=== PATIENT | female | born 1960 | race African-American/Black ===

== ENCOUNTER 2018-03-19 08:55 | Emergency (ER) | payer BC ==
[2018-03-19] MEDS: CEFTRIAXONE 1 GM/50 ML (PMX) 50 ML IVPB (10:37)
[2018-03-19] MEDS: ONDANSETRON 4 MG INJ IV (10:37)
[2018-03-19] MEDS: HYDROmorphONE 1 MG/ML SYG IV (10:37)
== END 2018-03-19 12:23 | disposition home or self-care (01) ==
LOC: E/R 12:23
DX: L73.2 Hidradenitis suppurativa (principal); L02.411 Cutaneous abscess of right axilla; E11.9 Type 2 diabetes mellitus without complications; I10 Essential (primary) hypertension; Z79.4 Long term (current) use of insulin
CPT/HCPCS: 96374; 96375; 99284-25